=== PATIENT | female | born 1975 | race African-American/Black ===

== ENCOUNTER 2017-02-28 10:04 | Emergency (ER) | payer OTHER ==
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
[~2017-02-28 10:04] MED LIST: BACTRIM DS TABL1 TA1 PO; CELEXA PO; CENTRUM PO; CIPRO PO; DIFLUCAN PO; LEVOTHYROXINE100 MCG PO; LEVOXYL100 MC1 PO; MOBIC15 MG PO; ZOFRAN ODT4 MG PO; ZOLOFT100 MG PO
== END 2017-02-28 13:20 | disposition home or self-care (01) ==
LOC: CED 10:04
DX: S00.03XA Contusion of scalp, initial encounter (principal); S80.01XA Contusion of right knee, initial encounter; Z79.899 Other long term (current) drug therapy; Z88.8 Allergy status to other drugs, medicaments and biological substances; V89.2XXA Person injured in unspecified motor-vehicle accident, traffic, initial encounter; Y92.410 Unspecified street and highway as the place of occurrence of the external cause
CPT/HCPCS: 70450; 72040; 72100; 73110; 73560; 84703; 96372; 99284; J1885

== ENCOUNTER 2017-03-05 10:59 | Emergency (ER) | payer SELFPAY ==
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
--- NOTE | ~2017-03-05 | EKG ---
PATIENT: BETTIE BIRCH UNIT #: [id number] Ventricular Rate: 80 BPM Atrial Rate: 80 BPM P-R Interval: 170 ms QRS Duration: 72 ms Q-T Interval: 382 ms QTC Calculation(Bezet): 440 ms P [place]: 55 degrees Calculated R [place]: -18 degrees Calculated T [place]: 13 degrees Diagnosis Line: Normal sinus rhythm Diagnosis Line: Moderate voltage criteria for LVH, may be normal Diagnosis Line: variant Diagnosis Line: Otherwise normal ECG Diagnosis Line: Diagnosis Line: Confirmed by TIGIST WASHBURN MD ([id number]) on 03/06/2017 Diagnosis Line: 5:50:38 PM INTERPRETING MD: WU NORIEGA
[2017-03-05] MEDS ORDERED: VITAMIN B COMP1 EACH (11:11)
[2017-03-05] MEDS ORDERED: VITAMIN D 22000 UNIT (11:11)
== END 2017-03-05 12:57 | disposition home or self-care (01) ==
LOC: SED 10:59
DX: S20.212A Contusion of left front wall of thorax, initial encounter (principal); F07.81 Postconcussional syndrome; Z90.49 Acquired absence of other specified parts of digestive tract; E03.9 Hypothyroidism, unspecified; D64.9 Anemia, unspecified; Z88.8 Allergy status to other drugs, medicaments and biological substances; Z79.899 Other long term (current) drug therapy; V49.60XA Unspecified car occupant injured in collision with unspecified motor vehicles in traffic accident, initial encounter; Y92.410 Unspecified street and highway as the place of occurrence of the external cause
CPT/HCPCS: 70450; 71020; 99284

== ENCOUNTER 2017-06-11 12:25 | Emergency (ER) | payer BC ==
--- NOTE | ~2017-06-11 | EKG ---
PATIENT: BETTIE BIRCH UNIT #: [id number] Ventricular Rate: 94 BPM Atrial Rate: 94 BPM P-R Interval: 162 ms QRS Duration: 72 ms Q-T Interval: 350 ms QTC Calculation(Bezet): 437 ms P [place]: 56 degrees Calculated R [place]: -14 degrees Calculated T [place]: 27 degrees Diagnosis Line: Normal sinus rhythm Diagnosis Line: Minimal voltage criteria for LVH, may be normal Diagnosis Line: variant Diagnosis Line: Otherwise normal ECG Diagnosis Line: Diagnosis Line: Confirmed by TIGIST WASHBURN MD ([id number]) on 06/12/2017 Diagnosis Line: 7:03:48 PM INTERPRETING MD: WU NORIEGA
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
[~2017-06-11 12:25] MED LIST changes: +VITAMIN B COMP1 EACH; +VITAMIN D 22000 UNIT
[2017-06-11 12:49] LABS: BASOPHIL% 0.4 % (0-2.5); EOSINOPHIL# 0.1 X10e3 (0-0.7); EOSINOPHIL% 1.3 % (0.0-7.0); HEMATOCRIT 37.8 % (35.0-45.0); HEMOGLOBIN 12.2 gm/dL (12.0-16.0); LYMPHOCYTE# 1.7 X10e3 (1.0-3.5); LYMPHOCYTE% 26.1 % (17.0-45.0); MEAN CELL VOLUME 78.7 FL (83-96); MEAN CORPUSCULAR HEMOGLOBIN 25.5 PG (28-34); MEAN CORPUSCULAR HGB CONC 32.4 g/dL (30-36); MEAN PLATELET VOLUME 8.9 FL (6.5-11.5); MONOCYTE# 0.7 X10e3 (0-1.0); MONOCYTE% 10.1 % (3.0-12.0); NEUTROPHIL# 4.1 X10e3 (1.5-7.1); NEUTROPHIL% 62.1 % (40-75); PLATELET COUNT 251 X10e3 (140-420); RED CELL DISTRIBUTION WIDTH 17.9 % (11.0-15.5); WHITE BLOOD COUNT 6.5 X10e3 (4.0-10.5)
[2017-06-11 12:50] LABS: URINE APPEARANCE CLEAR; URINE BILIRUBIN NEG (NEG); URINE COLOR YELLOW; URINE GLUCOSE NEG (NORM); URINE KETONE NEG (NEG); URINE NITRATE NEG (NEG); URINE PROTEIN NEG (NEG); URINE SOURCE CLEAN CATCH
[2017-06-11 12:51] LABS: DIFF IND NO
[2017-06-11 12:52] LABS: MICRO INDICATED? NO; URINE BLOOD NEG (NEG); URINE LEUKOCYTE ESTERASE NEG (NEG)
[2017-06-11 13:08] LABS: POC - CKMB <1.0 ng/mL (0.0-7.9); POC - MYOGLOBIN 30.2 ng/mL (0.0-169.0); POC - TROPONIN <0.05 ng/mL (<=0.05)
[2017-06-11 13:16] LABS: AMPHETAMINE NEG (NEG); BARBITURATES NEG (NEG); BENZODIAZEPINES NEG (NEG); COCAINE NEG (NEG); MARIJUANA NEG (NEG); OPIATES NEG (NEG); TRICYCLIC ANTIDEPRESSANTS NEG (NEG); U METHADONE NEG (NEG)
[2017-06-11 13:29] LABS: CALCIUM SERUM 8.7 mg/dL (8.4-10.2); CREATININE SERUM 0.5 mg/dL (0.6-1.4); GLOM FILT RATE Estimated 138.4 mL/min (>60); POTASSIUM 3.2 mmol/L (3.5-5.1)
== END 2017-06-11 14:50 | disposition home or self-care (01) ==
LOC: SED 12:25
PROVIDERS: Emergency Medicine
DX: E87.6 Hypokalemia (principal); R10.13 Epigastric pain; Z79.899 Other long term (current) drug therapy
CPT/HCPCS: 36415; 71010; 80048; 80307; 81003; 82553; 83874; 84484; 85025; 93005; 99285